=== PATIENT | female | born 1965 | race Caucasian/White ===

== ENCOUNTER → 2017-02-03 | Day surgery (SDC) | payer BC ==
[~2017-02-03] MED LIST: GLYCOPYRROLATE 1 MG/5 ML VIAL. ONE; IV RINGERS,LACTATED 1000ML 1,000 ML IV SCH; LIDOCAINE 2% PF Vial for OR 5 ML VIAL. ONE; PROPOFOL 20 ML IV ONE
[2017-02-03 09:50] VITALS: BP 134/74
--- NOTE | 2017-02-03 11:18 | HP ---
ADMIT DATE: 02/03/2017 REQUESTING PHYSICIAN: Laney Pittman M.D. REASON FOR PROCEDURE: Colorectal cancer screening. HISTORY OF PRESENT ILLNESS: This is a 51-year-old female who presents today for colorectal cancer screening. She reports a daily bowel movement and she admits to family history of colon cancer in her paternal uncle. PAST MEDICAL HISTORY: She has had a LEEP and a lump resected from her breast. FAMILY MEDICAL HISTORY: Colorectal cancer in a paternal uncle. MEDICATIONS: None. REVIEW OF SYSTEMS: A 13-point review of systems was done. It is positive as per HPI and otherwise negative. SOCIAL HISTORY: No tobacco, alcohol or IV drug abuse. PHYSICAL EXAMINATION: VITAL SIGNS: She is afebrile. Vital signs are stable. GENERAL: She is a well-developed, well-nourished female in no apparent distress. HEENT: Oropharynx is clear. CARDIOVASCULAR: S1, S2. LUNGS: Clear. ABDOMEN: Soft, nontender, nondistended. EXTREMITIES: No edema. NEUROLOGIC: Awake, alert and oriented x 3. ASSESSMENT AND PLAN: 1. Colorectal cancer screening: The risks and benefits including bleeding, perforation ____ were explained and she agreed to proceed. Thank you for allowing me to participate in the care of this patient. VERONICA MARTINEZ MD DR: ZION/toshia JOB#: [id number] / [id number] LANEY Gonzales MD
== END | disposition home or self-care (01) ==
LOC: ENDOS 07:58
PROVIDERS: ATTEND Internal Medicine Gastroenterology
DX: Z12.11 Encounter for screening for malignant neoplasm of colon (principal); K64.0 First degree hemorrhoids; Z80.0 Family history of malignant neoplasm of digestive organs; Z85.41 Personal history of malignant neoplasm of cervix uteri
CPT/HCPCS: 45378; J2704; J3490